=== PATIENT | male | born 1975 | race African-American/Black ===

== ENCOUNTER 2022-09-05 10:31 | Emergency (ER) | payer MEDICAID, OTHER ==
[~2022-09-05] VITALS: Ht 167.6 cm; Wt 51.8 kg
[2022-09-05] MEDS ORDERED: VISCOUS LIDOCAINE 2% 15 ML UDC MM STA (11:59)
[2022-09-05] MEDS ORDERED: KETOROLAC 30MG/ML VIAL IM ONE (12:00)
[2022-09-05] MEDS ORDERED: OXYCODONE HCL/ACETAMINOPHEN 5/325MG TABLET PO ONE (12:00)
[2022-09-05 12:53] VITALS: BP 131/77
[2022-09-05] MEDS ORDERED: BENZ1LOZ73 PO (13:06)
[2022-09-05] MEDS ORDERED: AMOX1TAB16 PO (13:06)
[2022-09-05] MEDS ORDERED: AMOXICILLIN/POTASSIUM CLAVULANATE 875/125MG TAB PO NR (13:15)
== END 2022-09-05 13:41 | disposition home or self-care (01) ==
LOC: ER 10:31
DX: J02.9 Acute pharyngitis, unspecified (principal); Z90.49 Acquired absence of other specified parts of digestive tract
CPT/HCPCS: 70490; 96372; 99285; J1885